=== PATIENT | female | born 1940 | race Caucasian/White ===

== ENCOUNTER → 2020-06-15 | Outpatient (CLI) | payer MEDICARE ==
--- NOTE | 2020-06-29 10:16 | MM ---
Reason for exam: screening (asymptomatic). Last mammogram was performed 1 year and 3 months ago. History: Patient is postmenopausal. Benign cyst aspiration of the left breast, 1980. Took estrogen for 10 years. Physical Findings: A clinical breast exam by your physician is recommended on an annual basis and results should be correlated with mammographic findings. MG Screening Mammo w CAD Bilateral CC and MLO view(s) were taken. Prior study comparison: March 11, 2019, mammogram, performed at [facility]. January 16, 2018, mammogram, performed at [facility]. There are scattered fibroglandular densities. No significant changes when compared with prior studies. ASSESSMENT: Benign, BI-RAD 2 RECOMMENDATION: Routine screening mammogram of both breasts in 1 year.
== END | disposition home or self-care (01) ==
LOC: RADMAMWWP 09:49
PROVIDERS: ATTEND General Practice
DX: Z12.31 Encounter for screening mammogram for malignant neoplasm of breast (principal)
CPT/HCPCS: 77067

== ENCOUNTER → 2021-09-06 | Outpatient (CLI) | payer MEDICARE ==
--- NOTE | 2021-09-08 10:44 | MM ---
Reason for exam: screening (asymptomatic). Last mammogram was performed 1 year and 3 months ago. History: Patient is postmenopausal and history of other cancer. Benign cyst aspiration of the left breast, 1980. Took estrogen for 10 years. Physical Findings: A clinical breast exam by your physician is recommended on an annual basis and results should be correlated with mammographic findings. MG Screening Mammo w CAD Bilateral CC and MLO view(s) were taken. Prior study comparison: June 15, 2020, bilateral MG screening mammo w CAD. March 11, 2019, mammogram, performed at [facility]. There are scattered fibroglandular densities. No significant changes when compared with prior studies. ASSESSMENT: Benign, BI-RAD 2 RECOMMENDATION: Routine screening mammogram of both breasts in 1 year.
== END | disposition home or self-care (01) ==
LOC: RADMAMWWP 11:03
PROVIDERS: ATTEND Family Medicine
DX: Z12.31 Encounter for screening mammogram for malignant neoplasm of breast (principal); Z85.89 Personal history of malignant neoplasm of other organs and systems
CPT/HCPCS: 77067

== ENCOUNTER → 2023-08-23 | Outpatient (CLI) | payer MEDICARE ==
--- NOTE | 2023-08-23 13:29 | XR ---
EXAMINATION TYPE: XR chest 2V DATE OF EXAM: 08/23/2023 COMPARISON: NONE HISTORY: Shortness of breath TECHNIQUE: Frontal and lateral views of the chest are obtained. FINDINGS: Scattered senescent parenchymal changes noted. Hyperinflation compatible with COPD. No evidence for infiltrate. No evidence for atelectasis. Heart size is stable. Mediastinal structures are stable and grossly unremarkable. No evidence for hilar prominence. Degenerative changes dorsal spine. IMPRESSION: 1. No evidence for acute pulmonary disease.
== END | disposition home or self-care (01) ==
LOC: RADXRMAIN 13:06
PROVIDERS: ATTEND Family Medicine
DX: J98.01 Acute bronchospasm (principal); A49.9 Bacterial infection, unspecified
CPT/HCPCS: 71046

== ENCOUNTER → 2023-09-13 | Outpatient (CLI) | payer MEDICARE ==
--- NOTE | 2023-09-14 12:34 | MM ---
Reason for Exam: Screening (asymptomatic). Last mammogram was performed 2 year(s) and 0 month(s) ago. Patient History: Menarche at age 12. First Full-Term at age 22. Left ovary removed at age 47. Right ovary removed at age 47. Hysterectomy at age 47. Postmenopausal. Other cancer. Patient used Estrogen for 10 years. 1981, Benign Cyst Aspiration on the left side. Risk Values: Bonnie 5 year model risk: 1.3%. NCI Lifetime model risk: 1.4%. Prior Study Comparison: 03/11/2019 Screening Mammogram, [facility]. 06/15/2020 Bilateral Screening Mammogram, [facility]. 09/06/2021 Bilateral Screening Mammogram, [facility]. Tissue Density: There are scattered fibroglandular densities. Findings: Analyzed By CAD. Appears symmetrical and stable. Few small scattered posterior axillary nodes are likely. No suspicious groups of microcalcifications, spiculated or lobular masses, architectural distortion or other secondary signs of malignancy are mammographically apparent. Overall Assessment: Benign, BI-RAD 2 Management: Screening Mammogram of both breasts in 1 year. A negative mammogram report should not preclude additional follow up of suspicious palpable abnormalities. Patient should continue monthly self breast exam. A clinical breast exam by your physician is recommended on an annual basis and results should be correlated with mammographic findings. Electronically signed and approved by: Jose L Jacques D.O. Radiologis
== END | disposition home or self-care (01) ==
LOC: RADMAMWWP 14:32
PROVIDERS: ATTEND Family Medicine
DX: Z12.31 Encounter for screening mammogram for malignant neoplasm of breast (principal); Z78.0 Asymptomatic menopausal state
CPT/HCPCS: 77063; 77067